=== PATIENT | male | born 1995 | race Caucasian/White ===

== ENCOUNTER 2023-09-03 22:30 | Emergency (ER) | payer OTHER, SELFPAY ==
[2023-09-03 22:30] VITALS: BP 127/93; BP 128/88; PULSE 104; PULSE 116; RESP 20; TEMP 37.4; O2SAT 96; O2SAT 98; BMI 31.2
[2023-09-04 00:18] LABS: Influenza A PCR POSITIVE (Negative); Influenza B PCR NEGATIVE (Negative); Resp Syncy Virus RNA Qual PCR NEGATIVE (Negative); SARS COV2 PCR INHOUSE NEGATIVE (Negative)
--- NOTE | 2023-09-04 00:31 | ED.GENADULT ---
HPI - General Adult General Chief complaint: Upper Respiratory Symptoms Stated complaint: HEADACHE,FEVER Time Seen by Provider: 09/04/23 00:26 Source: patient Mode of arrival: ambulatory Limitations: no limitations History of Present Illness HPI narrative: Patient comes to the emergency room complaining of headache, fever, cough , diffuse body aches and flu-like symptoms that started approximately 6 hours ago. Patient denies any sick contacts. Patient denies chest pain or shortness of breath. No sore throat. Related Data Previous Rx's Medication Instructions Recorded acetaminophen 500 mg tablet 500 mg PO QID PRN fever or pain 09/04/23 #14 tabs ibuprofen 600 mg tablet 600 mg PO TID PRN fever or pain 09/04/23 #14 tabs oseltamivir 75 mg capsule (Tamiflu) 75 mg PO BID 5 days #10 caps 09/04/23 Allergies Allergy/AdvReac Type Severity Reaction Status Date / Time No Known Allergies Allergy Verified 09/03/23 22:36 [No Known Allergies*] Review of Systems Review of Systems: Constitutional : No Weight loss, complaining of fever, chills, fatigue and generalized malaise ENT/Mouth : No Hearing loss, No Ear Pain, No Nasal Congestion, No Sinus Pain, No Hoarseness, No sore throat, No Rhinorrhea, No Swallowing Difficulty Eyes: No Eye Pain, No Swelling, No Redness, No Foreign Body, No Discharge, No Vision Changes Cardiovascular : No Chest Pain, No SOB, No Dyspnea on Exertion, No Orthopnea, No Edema, No Palpitations Respiratory : No Cough, No Sputum, No Wheezing, No Smoke Exposure, No Dyspnea Gastrointestinal : No Nausea, No Vomiting, No Diarrhea, No Constipation, No abdominal Pain, No Hematochezia, No Melena Genitourinary : no irregular bleeding, No Dysuria, No Urinary Frequency, No Hematuria, No Urinary Incontinence, No Urgency, No Flank Pain, No Urinary Flow Changes, No Hesitancy Musculoskeletal : No joint pain, No Myalgias, No Joint Swelling Skin : No Skin Lesions, No rash Neuro : No Weakness, No Numbness, No Paresthesias, No Loss of Consciousness, No Dizziness, complaining of Headache Psych : No Anxiety/Panic, No Depression, No SI/HI/AH/VH, No Social Issues, Heme/Lymph: No Bruising, No Bleeding,No Lymphadenopathy Endocrine : No Polyuria, No Polydipsia, No Temperature Intolerance PMFSH Social History Social History Advance Directives: No Advance Directives Information Provided: Yes Physical Exam ED Vital Signs: Vital Signs - 24 hr 09/03/23 22:30 Temperature 99.3 F Pulse Rate 104 H Respiratory Rate 20 Blood Pressure 127/93 H Pulse Oximetry 96 Oxygen Delivery Method Room Air BMI result Body Mass Index 31.2 Const Other: Appearance: Alert. Oriented X3. No acute distress. Eyes: Pupils equal, round and reactive to light. ENT: Pharynx normal. Neck: Normal inspection. Neck supple. No lymph nodes noted. No crepitus CVS: Slightly tachycardic, heart rate 104, regular rhythm, no murmurs, Pulses normal. Normal S1 and S2 Respiratory: No respiratory distress. Breath sounds normal. No Wheezing. No rales Abdomen: Soft and nontender. No rigidity. No distention. Skin: Skin warm and dry. Normal skin color. Normal skin turgor. Extremities: No lower extremity edema. No Lacerations. No Rash Neuro: Oriented X 3. No motor deficit. No sensory deficit. Moving all extremities. No slurred speech. CN 2 through 12 grossly intact Psych: calm, cooperative, normal affect Medical Decision Making Medical Decision Making [facility] Narrative: -my interpretation of labs, patient tested positive for influenza A -discussed with the patient that he has been symptomatic for less than 1 day, patient is a good candidate for Tamiflu, patient agrees with plan. -patient has a headache, patient was given IM Toradol Differential Diagnosis Differential Diagnoses: The differential diagnosis associated with the presentation includes (Influenza, COVID, viral syndrome) Lab Data [facility] Lab Attestation statement: I reviewed the patient's lab results. Labs: Lab Results 09/03/23 Range/Units 23:37 Influenza Type A (PCR) POSITIVE A (Negative) Influenza Type B (PCR) NEGATIVE (Negative) RSV RNA Qual (PCR) NEGATIVE (Negative) SARS-CoV-2 RNA (RT-PCR) NEGATIVE (Negative) Discharge Plan Discharge Clinical Impression: Influenza A Patient Disposition: Home, Self-Care Instructions: Influenza (ED) Additional Instructions: Please follow-up with your primary care physician tomorrow. If you have any worsening or new symptoms, please return to the emergency room or call 911 Prescriptions: New oseltamivir [Tamiflu] 75 mg capsule 75 mg PO BID 5 Days Qty: 10 0RF ibuprofen 600 mg tablet 600 mg PO TID PRN (Reason: fever or pain) Qty: 14 0RF acetaminophen 500 mg tablet 500 mg PO QID PRN (Reason: fever or pain) Qty: 14 0RF
[2023-09-04] MEDS: Ketorolac Tromethamine 60 MG/2 ML VIAL IM (00:50)
== END 2023-09-04 00:58 | disposition home or self-care (01) ==
PROVIDERS: Emergency Provider Emergency Medicine
DX: R51.9 Headache, unspecified (principal); R50.9 Fever, unspecified; R05.9 Cough, unspecified; M79.10 Myalgia, unspecified site; Z20.822 Contact with and (suspected) exposure to COVID-19; Z20.828 Contact with and (suspected) exposure to other viral communicable diseases
CPT/HCPCS: 0241U; 96372; 99284; J1885

== ENCOUNTER 2025-04-21 19:18 | Emergency (ER) | payer OTHER, SELFPAY ==
[2025-04-21 19:28] VITALS: BP 142/93; PULSE 95; RESP 16; TEMP 37.4; O2SAT 95; BMI 32.5
--- OUTSIDE RECORDS SUMMARY | 2025-04-21 19:38 | XMS_ITS | Clinical Summary ---
Author Organization [facility] ity Address [address] [place] [address] Care Team Providers Care Bodily Injury Adjuster Name Role Phone Unavailable Primary Care Provider Unavailabl e Surgical History Surgery Date Site/Laterality Comments OTHER SURGICAL HISTORY Left PROCEDURE: ---- OTHER ----; COMMENT: Strabismus correction, as child Family History Medical History Relation Name Comments Other: denies Other 1 Relation Name Status Comments Other 1 Other 2 Social History Tobacco Use Types Packs/Day Years Used Date Smoking Tobacco: Former Cigarettes Q uit: 05/21/2016 Alcohol Use Standard Drinks/Week Comments Not Asked 0 (1 standard drink = 0.6 oz pur e alcohol) Sex and Gender Information Value Date Recorded Sex Assigned at Not on file Legal Sex Male 8:58 AM EST Gender Identity Not on file Sexual Orientation Not on file Obstetrics History Plan of Treatment Health Maintenance Due Date Last Done Comments DTaP,Tdap,and Td Vaccines (1 - Tdap) 2012 Hepatitis B Vaccines (1 of 3 - 19+ 3-dose series) 2012 HIV Screening 08/24/2022 Hepatitis C Screening 08/24/2022 Social Influencers of Health Screening 08/24/2022 COVID-19 Vaccine (1 - 2023-2 5 season) 2024 Depression Screening 09/21/2024 Influenza Vaccine (#1) 2025 HIB Vaccines Aged Out No longer eligi ble based on patient's age to complete this topic HPV Vaccines Aged Out No longer eligi ble based on patient's age to complete this topic Hepatitis A Vaccines Aged Out No long er eligible based on patient's age to complete this topic IPV Vaccines Aged Out No longer eligi ble based on patient's age to complete this topic MMR Vaccines Aged Out No longer eligi ble based on patient's age to complete this topic Meningococcal ACWY Vaccine Aged Out N o longer eligible based on patient's age to complete this topic Meningococcal B Vaccine Aged Out No l onger eligible based on patient's age to complete this topic Pneumococcal Vaccine: Pediat rics (0 to 5 Years) and At-Risk Patients (6 to 49 Years) Aged Out No longer eligible b ased on patient's age to complete this topic RSV Immunization Patients Un liz 20 months Aged Out No longer eligible b ased on patient's age to complete this topic Varicella Vaccines Aged Out No longer eligible based on patient's age to complete this topic
--- NOTE | 2025-04-21 19:47 | PC.NURSE ---
ringing, pressure and ringing in right ear. states as 10/10. pt sitting still calmly in chair, no moaning, grimacing. alert, oriented, denies problems with balance. ambulates steadily without symptoms.
--- NOTE | 2025-04-21 21:49 | ED_ITS ---
HPI - Ear Problem General Chief complaint: Ear Problems Stated complaint: R ear infection Time Seen by Provider: 04/21/25 21:28 Source: patient Mode of arrival: ambulatory Limitations: no limitations History of Present Illness ED Provider: HPI Narrative: 29-year-old male, was swimming and started developing right ear pain 4 days ago, yesterday went to urgent Care started ibuprofen, amoxicillin and polymyxin B ear drops, he has not picked up the drops on the antibiotics CS, presenting with ear that became swollen overnight, insight is itching, and he is having some increased pain. No drainage. Related Data Previous Rx's ?Medication ?Instructions ?Recorded acetaminophen 500 mg tablet 500 mg PO QID PRN fever or pain 09/04/23 #14 tabs ibuprofen 600 mg tablet 600 mg PO TID PRN fever or p ain 09/04/23 #14 tabs oseltamivir 75 mg capsule (Tamiflu) 75 mg PO BID 5 day s #10 caps 09/04/23 ciprofloxacin 0.3 %-dexamethasone 4 drp otic (ear) rig ht BID 10 days 04/21/25 0.1 % ear drops,suspension #7.5 mL Allergies Allergy/AdvReac Type Severity Reaction Status Date / Time No Known Allergies (No Known Allergy Verified 04/21/25 19:29 Allergies*) Review of Systems Constitutional: Constitutional: Reports as per [facility] Social History Social History Smoked in Last 30 Days: No Use of substances other than those prescribed or required for medical reasons: No Advance Directives: No Advance Directives Information Provided: No Do you have a plan to hurt others: No Plan Physical Exam Vital Signs: Vital Signs: Last Vital Signs Temp 99.4 F 04/21/25 19:28 Pulse 95 04/21/25 19:28 Resp 16 04/21/25 19:28 BP 142/93 H 04/21/25 19:28 Pulse Ox 95 04/21/25 19:28 O2 Del Method Room Air 04/21/25 19:28 BMI result Body Mass Index 32.5 Const: Other: * Gen: ?Overall well-appearing patient * HEENT: Swelling of the auricular area, mild, some swelling to the tragus, no mastoid tenderness or subcutaneous emphysema, no trismus, external ear canal swelling * Neck: Slight submandibular tenderness * Skin: Warm, dry, intact, * Neuro: ?Alert and oriented x3, moving upper and lower extremities symmetrically, no obvious facial asymmetry noted Medical Decision Making Medical Decision Making MDM Narrative: Physical examination is consistent with otitis externa unlikely degree of otitis media, we will switch over pelvics in the wheel she did not take it to Cipro eyedrops which will cover Pseudomonas with steroids, we will give him steroids here, there was no indication for CT I do not suspect mastoiditis, or deep space infection at this time, he was seen at urgent care and he was prescribed oral antibiotics and drops but he did not take them yet, and then presenting with worsening swelling. He is nondiabetic. Differential Diagnosis Differential Diagnoses: The differential diagnosis associated with the presentation includes (Otitis media, otitis externa, mastoiditis, deep space infection of the neck) Admission/Observation Consideration of admission/observation: Escalation of care including admission/observation considered 2022 Emergency Medicine Coding Guide from [employer] on 04/21/2025 All calculations should be rechecked by clinician prior to use RESULT SUMMARY: 3 Estimated Level of Service Problems: Low (3) Risk: Moderate (4) Data: Minimal (2) NARRATIVE MDM: This patient's problem complexity is Low as patient: has =1 acute, uncomplicated illness(es)/injuries. This patient's risk is Moderate due to: overall presentation requiring evaluation for a potentially Moderate-risk process. This patient's data complexity is Minimal. INPUTS: Number and Complexity ?> 10 = 3: acute uncomplicated illness/injury (j) Risk level ?> 3 = Moderate Tests ordered ?> 0 = 0 Tests results reviewed (excluding labs) ?> 0 = 0 Prior external notes reviewed ?> 0 = 0 Assessment requiring and independent historian ?> 0 = No Independent interpretation of tests ?> 0 = No Discussed management/test interpretation w/external professional ?> 0 = No Tests considered The following testing was considered but not selected: CT brain with IV contrast to evaluate for mastoiditis or abscess Prescription Management I considered prescription management with: Pain Medication and Antibiotic Discharge Plan Discharge Clinical Impression: Otitis externa Qualifiers: Otitis externa type: swimmer's ear Chronicity: acute Laterality: right Qualified Code(s): H60.331 - Swimmer's ear, right ear Otitis media Qualifiers: Otitis media type: suppurative Chronicity: acute Laterality: right Spontaneous tympanic membrane rupture: without spontaneous rupture Patient Disposition: Home, Self-Care Instructions: Ear Infection (ED) Additional Instructions: Start using drops that I ordered, you can discontinue or not picker box operator the drops that was ordered urgent care yesterday, however you can take amoxicillin that was prescribed to you by them, ibuprofen 400 mg every 6 hours around the clock for the next 2 days, take it with food, Tylenol 975 mg every 6 hours for additional pain control, I did not give you some steroids in the ER I am hoping the swelling we will start decreasing by tomorrow Spiking fevers, inability to open your mouth, neck stiffness come back to the ER. This will take 2-3 days to start improving, please follow up my recommendation as above. Follow-up with your PCP Prescriptions: New ciprofloxacin-dexamethasone 0.3-0.1 % drops,suspension 4 drp otic (ear) right BID 10 Days Qty: 7.5 0RF No Action oseltamivir [Tamiflu] 75 mg capsule 75 mg PO BID 5 Days Qty: 10 0RF ibuprofen 600 mg tablet 600 mg PO TID PRN (Reason: fever or pain) Qty: 14 0RF acetaminophen 500 mg tablet 500 mg PO QID PRN (Reason: fever or pain) Qty: 14 0RF Print Language: Djiboutian
[2025-04-21 22:30] VITALS: BP 124/87; PULSE 82; RESP 16; TEMP 36.7; O2SAT 99
== END 2025-04-21 22:32 | disposition home or self-care (01) ==
PROVIDERS: Emergency Provider Emergency Medicine
DX: H60.331 Swimmer's ear, right ear (principal)
CPT/HCPCS: 96372; 99284; J1885; J8540

== ENCOUNTER 2025-04-28 20:42 | Emergency (ER) | payer OTHER, SELFPAY ==
[2025-04-28 20:49] VITALS: BP 135/96; PULSE 98; O2SAT 95
[2025-04-28 20:53] VITALS: PULSE 89; RESP 18; TEMP 36.9; O2SAT 97; BMI 32.5
[2025-04-28 20:56] VITALS: BP 141/84; PULSE 83; RESP 16; TEMP 36.9; O2SAT 97
--- OUTSIDE RECORDS SUMMARY | 2025-04-28 21:12 | XMS_ITS | Clinical Summary ---
Author Organization [facility] ity Address [address] [place] [address] Care Team Providers Care Implementation Director Name Role Phone Unavailable Primary Care Provider [...]
--- NOTE | 2025-04-28 22:33 | ED_ITS ---
HPI - Allergic Reaction General Chief complaint: Allergic Reaction Stated complaint: MILD ALLERGIC REACTION Time Seen by Provider: 04/28/25 22:10 Source: patient Mode of arrival: ambulatory Limitations: no limitations History of Present Illness ED Provider: HPI narrative: Patient apparently inhaled [facility] for few and within few minutes started having hives itching with nausea and vomiting going to faint no loss of consciousness EMS gave him epi and Zofran patient is feeling much better at this time no itching or rash no shortness a breath Related Data Previous Rx's ?Medication ?Instructions ?Recorded acetaminophen 500 mg tablet 500 mg PO QID PRN fever or pain 09/04/23 #14 tabs ibuprofen 600 mg tablet 600 mg PO TID PRN fever or p ain 09/04/23 #14 tabs oseltamivir 75 mg capsule (Tamiflu) 75 mg PO BID 5 day s #10 caps 09/04/23 ciprofloxacin 0.3 %-dexamethasone 4 drp otic (ear) rig ht BID 10 days 04/21/25 0.1 % ear drops,suspension #7.5 mL diphenhydramine HCl 25 mg tablet 50 mg (2 x 25 mg) PO Q6-8H PRN 04/28/25 (Benadryl Allergy) allergic reaction #20 tabs Allergies Allergy/AdvReac Type Severity Reaction Status Date / Time No Known Allergies (No Known Allergy Verified 04/28/25 20:55 Allergies*) Review of Systems Review of Systems: Yes all other systems are reviewed and are negative [facility] Social History Social History Smoked in Last 30 Days: No Use of substances other than those prescribed or required for medical reasons: No Advance Directives: No Advance Directives Information Provided: No Physical Exam ED Vital Signs: Vital Signs - 24 hr 04/28/25 20:53 04/28/25 20:56 Temperature 98.5 F 98.5 F Pulse Rate 89 83 Respiratory Rate 18 16 Blood Pressure 141/84 H Pulse Oximetry 97 97 Oxygen Delivery Method Room Air Room Air BMI result Body Mass Index 32.5 Appearance: Alert. Oriented X3. No acute distress. Eyes: PERRLA, No Nystagmus ENT: Pharynx normal. Oral Mucosa moist tongue and lips normal no stridor Neck: Normal inspection. Neck supple. CVS: Normal heart rate and rhythm. Pulses normal. Respiratory: No respiratory distress. Equal air entry bilateral, no wheezing/rales/rhonchi Abdomen: Soft and nontender. Bowel sounds are present, no mass palpable, no CVA tenderness Skin: Skin warm and dry. Normal skin color. Normal skin turgor. No hives at this time Extremities: No lower extremity edema. No calf tenderness Neuro: Oriented X 3. No motor deficit. Medical Decision Making Medical Decision Making MDM Narrative: Patient's likely allergic reaction to mays with systemic response responded to epi and Zofran at this time patient is asymptomatic will discharge patient home on Benadryl Discharge Plan Discharge Clinical Impression: Allergic reaction Patient Disposition: Home, Self-Care Instructions: General Allergic Reaction (ED) Additional Instructions: Cause of allergic reaction is not clear possible mays Take Benadryl 1-2 tablets every 6 hours as needed for itching or rash Report to the ER if lip swelling or tongue swelling or shortness a breath Prescriptions: New diphenhydramine HCl [Benadryl Allergy] 25 mg tablet 50 mg PO Q6-8H PRN (Reason: allergic reaction) Qty: 20 0RF No Action oseltamivir [Tamiflu] 75 mg capsule 75 mg PO BID 5 Days Qty: 10 0RF ibuprofen 600 mg tablet 600 mg PO TID PRN (Reason: fever or pain) Qty: 14 0RF acetaminophen 500 mg tablet 500 mg PO QID PRN (Reason: fever or pain) Qty: 14 0RF ciprofloxacin-dexamethasone 0.3-0.1 % drops,suspension 4 drp otic (ear) right BID 10 Days Qty: 7.5 0RF Print Language: Portuguese
[2025-04-28 22:43] VITALS: BP 141/84; PULSE 83; RESP 16; TEMP 36.9; O2SAT 97
== END 2025-04-28 22:43 | disposition home or self-care (01) ==
PROVIDERS: Emergency Provider Internal Medicine
DX: L50.9 Urticaria, unspecified (principal); R11.2 Nausea with vomiting, unspecified; T78.40XA Allergy, unspecified, initial encounter; X58.XXXA Exposure to other specified factors, initial encounter; Y92.9 Unspecified place or not applicable
CPT/HCPCS: 99283; 99284

== ENCOUNTER 2025-08-01 10:30 | Emergency (ER) | payer OTHER, SELFPAY ==
[2025-08-01 10:44] VITALS: BP 171/104; PULSE 90; RESP 20; TEMP 36.1; O2SAT 98; BMI 33.1
--- NOTE | 2025-08-01 10:46 | ED_ITS ---
HPI - General Adult General Chief complaint: General Medical Stated complaint: Wound Time Seen by Provider: 08/01/25 16:13 Source: patient, RN notes reviewed and old records reviewed Mode of arrival: ambulatory Limitations: no limitations History of Present Illness ED Provider: Bernard BASILIO narrative: 30-year-old male who denies any past medical history presents for evaluation of rectal bleeding. He reports that he was at the gym today doing squats and did not notice any issue. When he sat in his car he believes that he passed out. He does not remember having any significant pain in the area but when he came to he had bright red blood all over my pants and seat. he has a history of hemorrhoids pain He reports that he lifts heavy while at work. He denies any rectal pain pain Denies any chest pain, palpitations, lightheadedness, dizziness. He has no other complaints or concerns he reports that he has a bowel movement about daily and does not feel constipation Related Data Previous Rx's ?Medication ?Instructions ?Recorded acetaminophen 500 mg tablet 500 mg PO QID PRN fever or pain 09/04/23 #14 tabs ibuprofen 600 mg tablet 600 mg PO TID PRN fever or p ain 09/04/23 #14 tabs oseltamivir 75 mg capsule (Tamiflu) 75 mg PO BID 5 day s #10 caps 09/04/23 ciprofloxacin 0.3 %-dexamethasone 4 drp otic (ear) rig ht BID 10 days 04/21/25 0.1 % ear drops,suspension #7.5 mL diphenhydramine HCl 25 mg tablet 50 mg (2 x 25 mg) PO Q6-8H PRN 04/28/25 (Benadryl Allergy) allergic reaction #20 tabs hydrocortisone 2.5 % topical cream 1 appl GA BID hemor rhoids 1 week 08/01/25 with perineal applicator #30 grams (Anusol-HC) Allergies Allergy/AdvReac Type Severity Reaction Status Date / Time No Known Allergies (No Known Allergy Verified 08/01/25 10:48 Allergies*) Review of Systems 2 Constitutional: Constitutional: Denies body ache(s), Denies chills, Denies fever(s), Denies frequent falls and Denies headache(s) Eyes: Eyes: Denies irritation ENT: Denies vertigo, Denies dizziness and Denies headache(s) Cardiovascular: Cardiovascular: Denies chest pain, Reports syncope and Denies dyspnea on exertion Respiratory: Respiratory: Denies cough and Denies dyspnea on exertion Gastrointestinal: Gastrointestinal: Denies abdominal pain, Reports hematochezia, Denies nausea and Denies vomiting Musculoskeletal: Musculoskeletal: Denies back pain Integumentary/Breasts: Skin/Breast: Denies rash Neurologic: Denies vertigo, Denies dizziness, Reports syncope, Denies frequent falls and Denies headache(s) Psychiatric: Psychiatric: Denies anxiety [facility] Social History Social History Advance Directives: No Advance Directives Information Provided: No Do you have a plan to hurt others: No Plan Physical Exam ED Vital Signs: Vital Signs - 24 hr 08/01/25 10:44 Temperature 97.0 F Pulse Rate 90 Respiratory Rate 20 Blood Pressure 171/104 H Pulse Oximetry 98 Oxygen Delivery Method Room Air BMI result Body Mass Index 33.1 Const General: healthy appearing, comfortable, no acute distress, alert and awake Nutritional Appearance: well nourished Orientation/consciousness: patient oriented x3 HENMT Head: Yes normocephalic and Yes atraumatic Eyes Eyelids: Yes eyelids normal Conjunctivae: conjunctivae normal Sclerae: sclerae normal Corneas: corneas normal Pupils: Equal, round and reactive pupils present EOM: EOMs intact bilaterally Neck Neck: Yes full ROM Resp Effort & Inspection: normal respiratory effort, able to speak in complete sentences and not labored Cardio Rate: regular rate Rhythm: regular rhythm GI Other: no active bleeding from the external hemorrhoid Inspection: No distended Palpation (GI): Soft to palpation, not firm, nontender, no guarding and not rigid Rectal Exam - Male: No visual inspection normal and Yes External hemorrhoid(s) present ( large external hemorrhoid at the 9 o'clock position. approximately 3 cm ) Skin General skin exam: elasticity normal Neuro General: patient oriented x3 Cranial nerves: Yes Equal, round and reactive pupils present and Yes Bilaterally intact EOM present Cognition (Neuro): normal cognition Extrem Other: Moving all extremities well without any obvious deformities Course Course Course Narrative: This is a rapid medical exam performed by Stoney Bravo NP: Additional HPI, ROS, PE not included below will be deferred to primary provider. Patient is a 30y/o M with history of hemorrhoids presenting with complaint of syncopal episode after heavy lifting at the gym, states he hadn't been to the gym in 1-2 mos. Was having rectal pain prior. Left the gym, sat in car, and had a syncopal episode. Reports waking and noting a few mins had passed, then noticed a large amount of blood. Hypertensive in triage, denies hx of HTN, not on meds. Plan: EKG, labs, . Not visualized in triage due to privacy concerns Medical Decision Making Medical Decision Making [facility] Narrative: 30-year-old male presents for evaluation of rectal bleeding and a questionable syncopal episode. He currently feels back to his baseline. His workup was largely unremarkable, his EKG showed normal sinus rhythm with a rate of 84 beats minute. There were no significant changes when compared to his previous from May 19, 2018. The patient does not have any chest pain, palpitations or shortness of breath. His labs show a normal hemoglobin hematocrit, no significant anemia. I suspect that the patient had a vasovagal episode related to his workout and he likely versus external hemorrhoid when he sat down on his car after working out. His bleeding is currently controlled. He will be referred to General surgery for evaluation of the hemorrhoid and GI for a possible colonoscopy. No abdominal pain or tenderness, he rules out for ACS, he is PERC negative. Vital signs remained stable Differential Diagnosis Differential Diagnoses: The differential diagnosis associated with the presentation includes external hemorrhoids Internal hemorrhoid Diverticular bleed Syncope Vasovagal syncope ACS less likely Arrhythmia Admission/Observation Consideration of admission/observation: Escalation of care including admission/observation considered the patient did have a syncopal episode but ultimately did not require admission as he is back to his baseline he has been in the ER for 6 hours. Workup largely unremarkable. I have a low suspicion for arrhythmia and likely a vasovagal episode Lab Data [facility] Lab Attestation statement: I reviewed the patient's lab results. no leukocytosis or significant anemia. Normal platelet count. No electrolyte abnormalities warranting intervention. 08/01/25 11:04 08/01/25 11:04 Labs: Lab Results 08/01/25 Range/Units 11:04 WBC 6.4 (4.8-10.8) X10*3/uL RBC 5.28 (4.60-5.80) X10*6/uL Hgb 14.5 (14.0-18.0) g/dl Hct 43.7 (42.0-52.0) % MCV 82.8 (80.0-98.0) fL MCH 27.5 (27.0-33.0) pg MCHC 33.2 (31.0-36.0) g/dl RDW 12.7 (11.0-16.0) % Plt Count 322 (160-400) X10*3/uL MPV 10.3 (9.4-12.4) fL Immature Gran % (Auto) 0.3 (0.0-0.4) % Neut % (Auto) 52.2 (45-73) % Lymph % (Auto) 37.2 (20-40) % Hawkins % (Auto) 7.9 (2-11) % Eos % (Auto) 1.9 (0-4) % Baso % (Auto) 0.5 (0-2) % Lymph # (Auto) 2.4 (1.2-4.9) X10*3/uL Hawkins # (Auto) 0.5 (0.1-1.2) X10*3/uL Eos # (Auto) 0.1 (0.0-0.4) X10*3/uL Baso # (Auto) 0.0 (0.0-0.2) X10*3/uL Abs Immat Gran (auto) 0.02 (0.00-0.03) X10*3/uL Absolute Neuts (auto) 3.4 (2.0-8.3) x10*3/uL Absolute Nucleated RBC 0.000 (0.0-0.012) X10*3/uL Nucleated RBC % (auto) 0.0 (0.0-0.2) /100WBC PT 12.9 (11.2-13.5) SEC INR 1.1 (0.9-1.1) Sodium 139 (135-145) mmol/L Potassium 4.0 (3.3-5.1) mmol/L Chloride 105 (96-108) mmol/L Carbon Dioxide 23 (22-29) mmol/L Anion Gap 15 (12-20) BUN 14 (9-16) mg/dL Creatinine 0.91 (0.5-1.4) mg/dL Estim Creat Clear Calc 149.6 Estimated GFR > 60 Random Glucose 99 (60-115) mg/dL Calcium 9.4 (8.4-10.2) mg/dL Total Bilirubin 0.7 (0.0-1.0) mg/dL AST 46 H (5-37) U/L ALT 76 H (0-40) U/L Alkaline Phosphatase 60 (39-117) U/L Total Protein 7.9 (6.5-8.0) g/dL Albumin 5.0 (3.5-5.0) g/dL Independent Interpretation I performed an independent interpretation of an: EKG ( As above) Discharge Plan Discharge Clinical Impression: External bleeding hemorrhoids Patient Disposition: Home, Self-Care Instructions: Hemorrhoids (ED), Hemorrhoidectomy (DC) Additional Instructions: You have a large external hemorrhoid that is the likely source of bleeding. I recommend that you follow up with a colorectal surgeon as well as a GI doctor, referrals are provided. I recommend taking MiraLax every night for the next 2 weeks to keep your stool soft to prevent further bleeding. You may also benefit from a Sitz bath which you can buy at the pharmacy. Use the Anusol cream twice daily for 1 week return for new or worsening symptoms Prescriptions: New hydrocortisone [Anusol-HC] 2.5 % cream with perineal applicator 1 appl GA BID 7 Days Qty: 30 0RF No Action oseltamivir [Tamiflu] 75 mg capsule 75 mg PO BID 5 Days Qty: 10 0RF ibuprofen 600 mg tablet 600 mg PO TID PRN (Reason: fever or pain) Qty: 14 0RF acetaminophen 500 mg tablet 500 mg PO QID PRN (Reason: fever or pain) Qty: 14 0RF ciprofloxacin-dexamethasone 0.3-0.1 % drops,suspension 4 drp otic (ear) right BID 10 Days Qty: 7.5 0RF diphenhydramine HCl [Benadryl Allergy] 25 mg tablet 50 mg PO Q6-8H PRN (Reason: allergic reaction) Qty: 20 0RF Referrals: Alex Ayers MD [Physician, General Surgery] Referral Note: large external hemorrhoid Rose Wagner MD [Physician, Gastroenterology] Referral Note: bright red rectal bleeding Print Language: Danish
--- NOTE | 2025-08-01 10:50 | ECG_ITS ---
Test Reason : SYNCOPE Blood Pressure : */* mmHG Vent. Rate : 84 BPM Atrial Rate : 84 BPM P-R Int : 164 ms QRS Dur : 92 ms QT Int : 348 ms P-R-T Axes : 34 41 25 degrees QTcB Int : 411 ms Normal sinus rhythm Nonspecific ST abnormality Abnormal ECG When compared with ECG of 19-May-2018 21:26, No significant change was found Referred By: Ivet Bravo Electronically Signed By: CASTILLO COREAS MD
[2025-08-01 11:08] LABS: MANUAL DIFF FLAG NO
[2025-08-01 11:10] LABS: Hematocrit 43.7 % (42.0-52.0); Hemoglobin 14.5 g/dl (14.0-18.0); Imm Gran Abs Auto 0.02 X10*3/uL (0.00-0.03); Imm Gran Pct Auto 0.3 % (0.0-0.4); Lymphocytes Absolute Auto 2.4 X10*3/uL (1.2-4.9); Mean Corpuscular HGB Conc 33.2 g/dl (31.0-36.0); Mean Corpuscular Hemoglobin 27.5 pg (27.0-33.0); Mean Corpuscular Volume 82.8 fL (80.0-98.0); NRBC Abs Auto 0.000 X10*3/uL (0.0-0.012); NRBC Pct Auto 0.0 /100WBC (0.0-0.2); Platelet Count 322 X10*3/uL (160-400); Red Blood Count 5.28 X10*6/uL (4.60-5.80); White Blood Count 6.4 X10*3/uL (4.8-10.8)
[2025-08-01 11:24] LABS: Alanine Aminotransferase 76 U/L (0-40); Albumin Level 5.0 g/dL (3.5-5.0); Alkaline Phosphatase 60 U/L (39-117); Anion Gap 15 (12-20); Aspartate Amino Transferase 46 U/L (5-37); Blood Urea Nitrogen 14 mg/dL (9-16); Calcium 9.4 mg/dL (8.4-10.2); Carbon Dioxide 23 mmol/L (22-29); Chloride 105 mmol/L (96-108); Creatinine Clr Calc Pharmacy 149.6; Estimated Glomerular Filt Rate > 60; INTERNATIONAL NORM RATIO 1.1 (0.9-1.1); Potassium 4.0 mmol/L (3.3-5.1); Prothrombin Time 12.9 SEC (11.2-13.5); Sodium 139 mmol/L (135-145); Total Protein 7.9 g/dL (6.5-8.0)
[2025-08-01 17:01] VITALS: BP 155/107; PULSE 97; RESP 16; TEMP 36.8; O2SAT 99
--- OUTSIDE RECORDS SUMMARY | 2025-08-01 17:27 | XMS_ITS | Clinical Summary ---
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 [employer] Name Role Phone Unavailable Primary Care Provider Unavailabl e Surgical History Surgery Date Site/Laterality Comments OTHER SURGICAL HISTORY Left PROCEDURE: ---- OTHER ----; COMMENT: Strabismus correction, as child Family History Medical History Relation Name Comments Other: denies Other 1 Relation Name Status Comments Other 1 Other 2 Social History Tobacco Use Types Packs/Day Years Used Date Smoking Tobacco: Former Cigarettes 0 Q uit: 05/21/2016 Alcohol Use Standard Drinks/Week [...] of 3 - 19+ 3-dose series) 2012 HPV Vaccines (1 - 3-dose SCD M series) 2020 Depression Screening 09/21/2024 COVID-19 Vaccine (1 - 2023-2 5 season) 2025 Influenza Vaccine (#1) 2025 RSV Immunization Adult Patie nts (1 - 1-dose 75+ series) 2068 HIB Vaccines Aged Out No longer eligi [...]
== END 2025-08-01 17:03 | disposition home or self-care (01) ==
PROVIDERS: Registered Nurse Emergency; Emergency Provider Emergency Medicine
DX: K64.9 Unspecified hemorrhoids (principal); R55 Syncope and collapse
CPT/HCPCS: 36415; 80053; 85025; 85610; 93005; 99283

== ENCOUNTER → 2025-08-01 10:50 | Outpatient (BNV) | payer OTHER, SELFPAY | PROVIDERS: Emergency Provider Emergency Medicine; Visit Provider Internal Medicine Cardiovascular Disease | DX: R94.31 Abnormal electrocardiogram [ECG] [EKG] (principal); R55 Syncope and collapse | CPT/HCPCS: 93010 ==

== ENCOUNTER 2025-08-02 09:51 | Emergency (ER) | payer OTHER, SELFPAY ==
[2025-08-02 09:54] VITALS: BP 133/95; PULSE 92; RESP 16; TEMP 37; O2SAT 97; BMI 33.2
--- NOTE | 2025-08-02 10:08 | ED_ITS ---
HPI - General Adult General Chief complaint: General Medical Stated complaint: Blood In Stool Time Seen by Provider: 08/02/25 10:05 Source: patient Mode of arrival: ambulatory Limitations: no limitations History of Present Illness ED Provider: Pza Burdick PA-C HPI narrative: 30-year-old male with a known history of external hemorrhoids presents for reevaluation of rectal bleeding and severe pain. He was seen in the ED yesterday but did not receive pain medication for which he assumed he would. He had an rx for suppository topical therapy. While walking to his car after that visit he experienced profuse bright red bleeding from his external hemorrhoid. He went home, showered, and was able to briefly control the bleeding. Overnight he awoke to find his bed covered in blood and again noted bleeding when exiting the shower this morning. He reports sharp, 10/10 pain that makes sitting and ambulation difficult. The pain worsens with bowel movements; his last BM was yesterday and he is now fearful of defecation due to pain and bleeding. The hemorrhoid has been ?huge? for two days, initially triggered/exacerbated while squatting during a workout when it ?exploded.? He denies prior surgical intervention; past episodes have resolved spontaneously and were never this large. He did not receive pain medication or cauterization during yesterday?s visit. He feels light-headed/dizzy at times. No fevers, trauma, or falls. No history of GI specialist care. Not on anticoagulants. Related Data Previous Rx's ?Medication ?Instructions ?Recorded acetaminophen 500 mg tablet 500 mg PO QID PRN fever or pain 09/04/23 #14 tabs ibuprofen 600 mg tablet 600 mg PO TID PRN fever or p ain 09/04/23 #14 tabs oseltamivir 75 mg capsule (Tamiflu) 75 mg PO BID 5 day s #10 caps 09/04/23 ciprofloxacin 0.3 %-dexamethasone 4 drp otic (ear) rig ht BID 10 days 04/21/25 0.1 % ear drops,suspension #7.5 mL diphenhydramine HCl 25 mg tablet 50 mg (2 x 25 mg) PO Q6-8H PRN 04/28/25 (Benadryl Allergy) allergic reaction #20 tabs hydrocortisone 2.5 % topical cream 1 appl [place] BID hemor rhoids 1 week 08/01/25 with perineal applicator #30 grams (Anusol-HC) oxycodone 5 mg capsule 5 mg PO BID PRN severe pain (scale 08/02/25 score 7-10) #5 caps Allergies Allergy/AdvReac Type Severity Reaction Status Date / Time No Known Allergies (No Known Allergy Verified 08/02/25 09:56 Allergies*) Review of Systems 2 Review of Systems: Yes all other systems are reviewed and are negative PMFSH Past Medical History Attestation statement: The following information was validated with the patient. Source: old records reviewed and nursing notes reviewed Social History Social History Advance Directives: No Advance Directives Information Provided: No Physical Exam ED Exam Exam: 4 hemrrohids Vital Signs: Vital Signs - 24 hr 08/02/25 09:54 08/02/25 10:29 Temperature 98.6 F Pulse Rate 92 Respiratory Rate 16 16 Blood Pressure 133/95 H Pulse Oximetry 97 Oxygen Delivery Method Room Air BMI result Body Mass Index 33.2 Const Other: multiple hemorrhoids, sizes and appearance in image above. no current bleeding, medical services coordinator present during exam, obese patient, well appearing, nontender abdomen, moist oral mucosa, no inguinal lymphadenopathy General: cooperative and no acute distress Medications Administered Discontinued Medications Generic Name Dose Route Start Last Admin Trade Name Freq PRN Reason Stop Dose Admin Acetaminophen 975 mg 08/02/25 10:18 08/02/25 10:29 Acetaminophen 325 Mg Tablet PO 08/02/25 10:19 975 mg ONCE ONE Administration Morphine Sulfate 2 mg 08/02/25 10:18 08/02/25 10:29 Morphine Sulfate 4 Mg/Ml Cartridge SUBCUT 08/02/25 10:19 2 mg ONCE ONE Administration Protocol Medical Decision Making Medical Decision Making MDM Narrative: Patient re-evaluated for ongoing rectal bleeding dx'd with external hemorrhoid yesterday here. No anemia noted on labs. Bleeding was controlled on exam and did not require cautery. Plan to repeat labs from yesterday to assess for blood loss. Rectal exam with medical services coordinator planned. Silver nitrate cauterization will be considered if active external bleeding observed. Patient counseled that definitive hemorrhoid removal is outpatient; goal today is symptomatic control and hemorrhoid shrinkage. Plan: * Analgesia: Order pain medication per ED protocol (specific agent to be determined). * Laboratory studies: Repeat CBC and other labs drawn yesterday to assess hemoglobin/hematocrit. * Procedures: Perform chaperoned rectal examination; cauterize with silver nitrate if active external bleeding present. * Topical/medical therapy: Hemorrhoid-shrinking measures such as witch dl, nifedipine, and cortisone were discussed as possible options. * Specialty referral: Patient already provided phone numbers for surgical consult; earliest availability after New Year. Continue efforts to obtain outpatient colorectal surgery/GI follow-up. 1058: No continuous bleeding. CBC without sig delta: today's values vs yesterday: RBC 5.15/5.15 Hgb 13.9/14.5 and Hct 43.7/42.4. He does not meet transfusion criteria. Advised using witch dl soaked on goak in additional the script he was sent yesterday. WOrk note given. Differential Diagnosis Differential Diagnoses: The differential diagnosis associated with the presentation includes thrombosed hemorrhoids rectal abscess Admission/Observation Consideration of admission/observation: Escalation of care including admission/observation considered Patient would have been admitted to the hospital had his work up had any findings where hospital admission was appropriate and his clinical presentation warranted hospital admission. Lab Data MDM Lab Attestation statement: I reviewed the patient's lab results. 08/02/25 10:39 Labs: Lab Results 08/02/25 Range/Units 10:39 WBC 6.3 (4.8-10.8) X10*3/uL RBC 5.15 (4.60-5.80) X10*6/uL Hgb 13.9 L (14.0-18.0) g/dl Hct 42.4 (42.0-52.0) % MCV 82.3 (80.0-98.0) fL MCH 27.0 (27.0-33.0) pg MCHC 32.8 (31.0-36.0) g/dl RDW 12.6 (11.0-16.0) % Plt Count 302 (160-400) X10*3/uL MPV 10.1 (9.4-12.4) fL Immature Gran % (Auto) 0.3 (0.0-0.4) % Neut % (Auto) 53.1 (45-73) % Lymph % (Auto) 38.2 (20-40) % Sharkey % (Auto) 6.2 (2-11) % Eos % (Auto) 1.9 (0-4) % Baso % (Auto) 0.3 (0-2) % Lymph # (Auto) 2.4 (1.2-4.9) X10*3/uL Sharkey # (Auto) 0.4 (0.1-1.2) X10*3/uL Eos # (Auto) 0.1 (0.0-0.4) X10*3/uL Baso # (Auto) 0.0 (0.0-0.2) X10*3/uL Abs Immat Gran (auto) 0.02 (0.00-0.03) X10*3/uL Absolute Neuts (auto) 3.3 (2.0-8.3) x10*3/uL Absolute Nucleated RBC 0.000 (0.0-0.012) X10*3/uL Nucleated RBC % (auto) 0.0 (0.0-0.2) /100WBC Tests considered The following testing was considered but not selected: Would have considered lower GI bleed protocol had his external and internal hemorrhoids not been visible source of bleed. Prescription Management I considered prescription management with: Pain Medication Chronic Conditions Patient?s care impacted by: Other Social Determinants Patient?s care significantly limited by Social Determinants of Health including: Other Social Determinant of Health Discharge Plan Discharge Clinical Impression: Internal and external thrombosed hemorrhoids Patient Disposition: Home, Self-Care Instructions: Hemorrhoids (ED), Hemorrhoidectomy (DC) Additional Instructions: You were seen in emergency department today for evaluation of bleeding hemorrhoids. You have both internal and external hemorrhoids. I have counted 4 in total. THe largest being 3 cm and the others 1cm and 0.5cm each. The internal hemorrhoids are smaller and are the ones that are causing the rectal bleeding. They are currently clotted. It is recommended you pick and shovel worker the anusol-HC that was sent to the pharmacy for you yesterday. THis will help strink them. In additional to this, I recommend you purchase over the counter Witch Dl ( clear bottle like isopropyl alcohol- found in same area as hydrogen peroxide at drug store). Soak this on gauze and place directly against your rectum. This tool will help significantly reduce size of your hemorrhoids on the outside. You would likely benefit from surgical removal of these, but the measures above will certaintly shrink them if you are compliant with the instructions for use. Please also increase fiber in your diet. Do not do any activities that involve pressure on your rectum (bearing down) like squatting lifting or forceful pushing with bowel movement. Avoid NSAIDs for now. Return to ER for concerns or the inability of the hemorrhoids to stop bleeding. Prescriptions: New oxycodone 5 mg capsule 5 mg PO BID PRN (Reason: severe pain (scale score 7-10)) Qty: 5 0RF Rx Instructions: Partial Fill upon patient request. No Action hydrocortisone [Anusol-HC] 2.5 % cream with perineal applicator 1 appl UT BID 7 Days Qty: 30 0RF oseltamivir [Tamiflu] 75 mg capsule 75 mg PO BID 5 Days Qty: 10 0RF ibuprofen 600 mg tablet 600 mg PO TID PRN (Reason: fever or pain) Qty: 14 0RF acetaminophen 500 mg tablet 500 mg PO QID PRN (Reason: fever or pain) Qty: 14 0RF ciprofloxacin-dexamethasone 0.3-0.1 % drops,suspension 4 drp otic (ear) right BID 10 Days Qty: 7.5 0RF diphenhydramine HCl [Benadryl Allergy] 25 mg tablet 50 mg PO Q6-8H PRN (Reason: allergic reaction) Qty: 20 0RF Referrals: [facility] [Provider Group, Gastroenterology] Clinical Impression: Internal and external thrombosed hemorrhoids Stand Alone Forms: Work/School Release Interventions: ED Discharge Assessment Last Done: 08/02/25 11:24 Discharge Date/Time: 08/02/25 11:25 Print Language: Mauritanian
[2025-08-02 10:29] VITALS: RESP 16
[2025-08-02 10:42] LABS: MANUAL DIFF FLAG NO
[2025-08-02 10:49] LABS: Hematocrit 42.4 % (42.0-52.0); Hemoglobin 13.9 g/dl (14.0-18.0); Imm Gran Abs Auto 0.02 X10*3/uL (0.00-0.03); Imm Gran Pct Auto 0.3 % (0.0-0.4); Lymphocytes Absolute Auto 2.4 X10*3/uL (1.2-4.9); Mean Corpuscular HGB Conc 32.8 g/dl (31.0-36.0); Mean Corpuscular Hemoglobin 27.0 pg (27.0-33.0); Mean Corpuscular Volume 82.3 fL (80.0-98.0); NRBC Abs Auto 0.000 X10*3/uL (0.0-0.012); NRBC Pct Auto 0.0 /100WBC (0.0-0.2); Platelet Count 302 X10*3/uL (160-400); Red Blood Count 5.15 X10*6/uL (4.60-5.80); White Blood Count 6.3 X10*3/uL (4.8-10.8)
[2025-08-02 11:24] VITALS: BP 130/82; PULSE 70; RESP 16; TEMP 36.2; O2SAT 97
--- OUTSIDE RECORDS SUMMARY | 2025-08-02 13:25 | XMS_ITS | Clinical Summary ---
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
== END 2025-08-02 11:25 | disposition home or self-care (01) ==
PROVIDERS: Physician Assistant Medical; Emergency Provider Emergency Medicine
DX: K64.5 Perianal venous thrombosis (principal)
CPT/HCPCS: 36415; 85025; 96372; 99283; 99284; J2270